=== PATIENT | male | born 1990 | race Caucasian/White ===

== ENCOUNTER 2017-11-13 14:58 | Emergency (ER) | payer OTHER ==
[~2017-11-13] VITALS: Ht 188 cm; Wt 99.8 kg
[2017-11-13] MEDS ORDERED: LIDOCAINE 2% 20 ML VIAL. IJ ONE (15:40)
[2017-11-13 16:05] VITALS: BP 142/77
--- NOTE | 2017-11-13 16:14 | PHYS DOC ---
Past History Past Medical History: No Pertinent History Past Surgical History: No Surgical History Alcohol Use: Occasionally Drug Use: None Adult General Chief Complaint Chief Complaint: LACERATION HPI HPI Patient is a 27-year-old male who presents ambulatory to the ED with a right hand injury. The patient was helping move a heavy washing machine when he tripped over a board and dropped the washing machine, it landed on his right hand. Patient is right-handed. Last tetanus shot last year. Patient denies other injury. Review of Systems Review of Systems Musculoskeletal: Denies pain or injury other than to the right hand Current Medications Current Medications Current Medications Medications (Trade) Dose Ordered Sig/Joseph Start Time Stop Time Status Last Admin Dose Admin Lidocaine HCl 20 ml 1X ONCE 11/13/17 15:40 11/13/17 15:41 DC 11/13/17 15:39 20 ML Allergies Allergies Allergies Coded Allergies Type Severity Reaction Last Updated Verified No Known Drug Allergies 11/13/17 No Physical Exam Physical Exam Constitutional: Well developed, well nourished, no acute distress, non-toxic appearance. Ambulatory, warm and dry. HENT: Normocephalic, atraumatic, bilateral external ears normal, nose normal. [ ] Eyes: conjunctiva normal, no discharge. [] Neck: Normal range of motion, no stridor. [] Skin: Warm, dry, no erythema, no rash. [] Extremities: Right hand: There are lacerations on the middle and ring finger, palmar aspect, over the PIP joint. Other digits are not injured. The patient can fully extend and flex the affected fingers against resistance but it is somewhat painful. The patient states his fingers are "numb. Distal vascular intact. Patient is able to feel touch to the fingers. Neurologic: Alert and oriented X 3, normal motor function, no focal deficits noted. [] Current Patient Data Vital Signs Vital Signs Date Time Temp Pulse Resp B/P (MAP) Pulse Ox O2 Delivery O2 Flow Rate FiO2 11/13/17 15:05 98.2 89 16 98 Room Air EKG EKG [] Radiology/Procedures Radiology/Procedures Three-view x-ray of the right hand read by me. No acute bony abnormality noted. No foreign body. Procedure: Laceration repair by me The right middle and fourth fingers were cleansed with surgical scrub sponge. 2 % lidocaine plain was used to perform digital block on both fingers. After the digital block took effect, the fingers were cleaned well with a surgical scrub sponge. The lacerations were irrigated with normal saline using a splash shield. The fourth finger laceration is a superficial skin avulsion measuring 1 cm x 2 mm. The affected skin was debrided and sutures were not required. The third finger laceration is a 2 cm laceration over the palmar aspect of the PIP joint. The laceration was cleaned and explored. I am not able to visualize deeper structures. The flexor tendons are intact I function. The laceration was closed with 4 simple interrupted sutures of 4-0 nylon. Good result. The lacerations were cleaned and dressed by ED nursing staff.[] Course & Med Decision Making Course & Med Decision Making Pertinent Labs and Imaging studies reviewed. (See chart for details) [] Dragon Disclaimer Dragon Disclaimer This electronic medical record was generated, in whole or in part, using a voice recognition dictation system. Departure Departure: Impression: Primary Impression: Laceration of right middle finger Additional Impression: Laceration of right ring finger Disposition: 01 HOME, SELF-CARE Condition: IMPROVED Patient Instructions: Laceration Care, Adult, [id number] Additional Instructions: Leave the bandage on and keep it dry for 48 hours. Then you may remove the bandage and cleaned carefully once or twice a day, you may briefly what it to shower or clean the hand once or twice a day. Wash the area with a warm washcloth and pat dry, reapply Neosporin ointment and a nonadherent dressing and a thick gauze or Band-Aid wrap to protect the area. Elevate to help with swelling and pain. Ibuprofen for pain if needed. Stitches need to be removed in 14 days. You may return here for that or see your primary care doctor. If at any time, the finger does not seem to be healing well, it is not acting normal, or if you have any concerns, return to emergency for recheck or see your doctor. Problem Qualifiers KAYLA HSU MD Nov 13, 2017 16:14
--- NOTE | 2017-11-14 07:49 | RAD ---
Exam: Right hand radiograph Indication: Washer fell on right hand. Comparison: None available Technique: 3 views of the right hand are provided. Findings: There is no acute fracture or dislocation. No joint space narrowing. No soft tissue swelling. No osseous erosion or soft tissue gas. Bone mineralization is within normal limits. Impression: No acute fracture or dislocation.
== END 2017-11-13 16:20 | disposition home or self-care (01) ==
LOC: ER 14:58
DX: S61.214A Laceration without foreign body of right ring finger without damage to nail, initial encounter (principal); S61.212A Laceration without foreign body of right middle finger without damage to nail, initial encounter; W20.8XXA Other cause of strike by thrown, projected or falling object, initial encounter; Y93.89 Activity, other specified; Y99.8 Other external cause status; Y92.89 Other specified places as the place of occurrence of the external cause
CPT/HCPCS: 12001; 64450; 73130; 99284-25; J2001